=== PATIENT | male | born 1990 | race Caucasian/White ===

== ENCOUNTER 2023-02-11 15:45 | Emergency (ER) | payer BC, OTHER ==
[2023-02-11] MEDS ORDERED: Dexamethasone 10 MG/ML SDV PO ONE (16:00)
[2023-02-11] MEDS ORDERED: diphenhydrAMINE 25 MG Cap PO ONE (16:01)
[2023-02-11 17:01] VITALS: BP 141/97; PULSE 101
== END 2023-02-11 17:01 | disposition home or self-care (01) ==
LOC: MW.ED 15:45
DX: T78.40XA Allergy, unspecified, initial encounter (principal); I10 Essential (primary) hypertension; Z88.5 Allergy status to narcotic agent
CPT/HCPCS: 99283; A9270; J8540